=== PATIENT | female | born 2000 | race Caucasian/White ===

== ENCOUNTER 2024-11-16 08:41 | Emergency (ER) | payer OTHER, SELFPAY ==
[2024-11-16 08:47] VITALS: BP 102/80; PULSE 102; TEMP 37.1; O2SAT 97; BMI 20.4
--- NOTE | 2024-11-16 09:38 | ED_ITS ---
HPI HPI - General Adult General Chief complaint: Upper Respiratory Infection Stated complaint: FLU LIKE SYMPTOMS Time Seen by Provider: 11/16/24 08:55 Source: patient Mode of arrival: walk-in Limitations: no limitations History of Present Illness HPI narrative: Patient is a 23-year-old female who is presenting to the ER today with chief complaint of flulike symptoms since starting Friday. Patient has been having nausea, vomiting, intermittent diarrhea. Patient is currently on her menses. Patient states she is not . Patient is currently in voluntary rehabilitation at [facility]. Patient states that she recently had a in the family of her brother and dad that have both of opiates. 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 Patient has been coughing, has been sick, and patient continues to be forced to go to group therapy while she is having flulike symptoms. Patient has been asking for nausea medication and has not been given by the nurse practitioner Martinez for unknown reason. Patient is voluntary in rehab, she wants to be there, but she is having difficulty working with the nurse practitioner Martinez for the reason treating flulike symptoms and her activity in [facility]. Patient is here secondary to feeling dehydrated, nausea vomiting, flulike symptoms, and wanting treatment to help her symptoms. All systems are negative except as noted/marked. All systems reviewed and otherwise negative. Nurses note and vital signs reviewed and patient is not hypoxic. General: The patient appears well and in no apparent distress. Patient is resting comfortably on cart. Patient is not toxic, lethargic, or listless Skin: Warm, dry, no pallor noted. There is no rash noted. No petechiae, purpura. Multiple tattoos, no secondary signs of infection. Head: Normocephalic, atraumatic Eye: Normal conjunctiva, no drainage, EOMI. PERRL Ears, Nose, Mouth, and Throat: oral mucosa is moist Nares patent. Mouth without vesicles. Cardiovascular: Regular Rate and Rhythm, no murmur, gallop, rub Respiratory: Patient is in no distress, no accessory muscle use, lungs are cl ear to auscultation, no wheezing, rales or rhonchi Back: non-tender, no CVA tenderness bilaterally to percussion. No CT LS midline pain GI: Mild diffuse tenderness to palpation, no masses appreciated. No peritoneal signs, no flank pain bilateral. no rebound, guarding, or rigidity noted. No distention Musculoskeletal: Patient has full range of motion of all of the extremities, no motor, sensory, or focal neurological deficits Neurological: A&O x4, normal speech Psychiatric: Cooperative Related Data Home Medications ?Medication ?Instructions ?Recorded ?Confirmed buprenorphine 24 mg/0.48 mL 24 mg subcut QWEEK 11/16/24 11/16/24 solution,exten.rel.subcutaneous syringe (Brixadi Weekly) ibuprofen 800 mg tablet (IBU) 800 mg PO Q8H 11/16/24 11/16/24 Previous Rx's ?Medication ?Instructions ?Recorded ciprofloxacin HCl 500 mg tablet 500 mg PO BID 3 days #6 tabs 11/16/24 ciprofloxacin HCl 500 mg tablet 500 mg PO BID 3 days #6 tabs 11/16/24 ondansetron 4 mg disintegrating 4 mg PO Q4H PRN nausea and 11/16/24 tablet vomiting 3 days #6 tabs Allergies Allergy/AdvReac Type Severity Reaction Status Date / Time No Known Drug Allergies Allergy Verified 11/16/24 08:52 Opioid HPI Opioid Management Most Recent Opioid Data: No Data to Display PFSH PFSH Social History Little interest or pleasure in doing things: not at all Feeling down, depressed, or hopeless: not at all Exam Constitutional Vital Signs, click to edit/add: Last Vital Signs Temp 98.8 F 11/16/24 08:47 Pulse 102 H 11/16/24 08:47 Resp 18 11/16/24 08:47 BP 102/80 11/16/24 08:47 Pulse Ox 97 11/16/24 08:47 O2 Del Method Room Air 11/16/24 08:47 Course Vital Signs Vital signs: Vital Signs Temperature 98.8 F 11/16/24 08:47 Pulse Rate 102 H 11/16/24 08:47 Respiratory Rate 18 11/16/24 08:47 Blood Pressure 102/80 11/16/24 08:47 Pulse Oximetry 97 11/16/24 08:47 Oxygen Delivery Method Room Air 11/16/24 08:47 Temperature 98.8 F 11/16/24 08:47 Pulse Rate 102 H 11/16/24 08:47 Respiratory Rate 18 11/16/24 08:47 Blood Pressure 102/80 11/16/24 08:47 Pulse Oximetry 97 11/16/24 08:47 Oxygen Delivery Method Room Air 11/16/24 08:47 Medical Decision Making MDM Narrative Medical decision making narrative: Patient heart rate is elevated, patient is asking for IV fluids. Patient been having nausea vomiting for the past 3 to 4 days has not been able to keep much liquids in. Patient will receive 1 L of IV fluid, have basic lab work drawn as well including urine. Patient says that she is not . Patient will be given work restriction note as well. 1045 patient potassium was 3.2. Patient was given oral potassium to drink. Patient felt much better after IV fluids. Patient was given Zofran. Patient was given a prescription for Zofran. Patient was given a work restrictions/ recommendations to help treat flulike symptoms. Patient was thankful for help, patient will be picked up and taken back to [facility]. 1105 urine shows bacteria, white blood cells, is contaminated with blood but minimal epithelial cells. Patient will be placed on prophylactic antibiotic as well, urine culture is pending Lab Data Labs: Lab Results 11/16/24 11/16/24 Range/Units 09:28 10:20 Sodium 140 (136-145) mmol/L Potassium 3.2 L (3.5-5.1) mmol/L Chloride 105 (98-107) mmol/L Carbon Dioxide 26.3 (21.0-32.0) mmol/L Anion Gap 11.9 BUN 8.0 (7.0-18.0) mg/dL Creatinine 0.73 (0.55-1.02) mg/dL Est GFR ( Amer) >60 (>=60 mL/min/1.73m^2) Est GFR (Non-Af Amer) >60 (>=60 mL/min/1.73m^2) BUN/Creatinine Ratio 11.0 Glucose 108 H (74-106) mg/dL Calcium 8.8 (8.5-10.1) mg/dL Magnesium 2.1 (1.8-2.4) mg/dL Total Creatine Kinase 39 (26-192) U/L Urine Color Dk. yellow (YELLOW) Urine Clarity Sl cloudy (CLEAR) Urine pH 6.0 (5.0-9.0) Ur Specific [place] 1.025 (1.005-1.025) Urine Protein 100 A (NEG/TRACE) mg/dL Urine Glucose (UA) Negative (NEGATIVE) mg/dL Urine Ketones Negative (NEGATIVE) mg/dL Urine Occult Blood Large A (NEGATIVE) Urine Nitrite Negative (NEGATIVE) Urine Bilirubin Small A (NEGATIVE) Urine Urobilinogen 2.0 A (0.2-1.0) EU/dL Ur Leukocyte Esterase Negative (NEGATIVE) Urine RBC 5-10 A (0-2) #/HPF Urine WBC 0-2 A (NONE SEEN) #/HPF Ur Squamous Epith Cells Few A (NONE/RARE) #/LPF Urine Crystals None seen (None Seen) #/HPF Urine Bacteria Moderate A (NONE SEEN) #/HPF Urine Casts None seen (NONE SEEN) #/LPF Urine Mucus Moderate A (NONE SEEN) Ur Culture Indicated? Yes-[facility] [place] Discharge Plan Discharge Stand Alone Forms: Work/School Release Chief Complaint: Upper Respiratory Infection Clinical Impression: Flu-like symptoms, Nausea & vomiting, Mild dehydration, Hypokalemia, Urinary tract infection Patient Disposition: Home, Self-Care Time of Disposition Decision: 10:41 Condition: Fair Prescriptions / Home Meds: New ciprofloxacin HCl 500 mg tablet 500 mg PO BID 3 Days Qty: 6 0RF ondansetron 4 mg tablet,disintegrating 4 mg PO Q4H PRN (Reason: nausea and vomiting) 3 Days Qty: 6 0RF ciprofloxacin HCl 500 mg tablet 500 mg PO BID 3 Days Qty: 6 0RF No Action Brixadi 24 mg/0.48 mL solution, extended rel syringe 24 mg subcut QWEEK ibuprofen [IBU] 800 mg tablet 800 mg PO Q8H Print Language: Cymraes Instructions: Dehydration (ED), Urinary Tract Infection in Women (ED), Potassium Content of Foods List (ED), Hypokalemia (ED), Acute Nausea and Vomiting (ED), Acute Nausea and Vomiting (DC), Acute Abdominal Pain (ED) Additional Instructions: Use Zofran as needed to help with increasing fluids at home. Increase fluids at home, Gatorade, Powerade, or water. Alternate using DayQuil, NyQuil, and Flonase. Add Mucinex as well as needed. Alternate Tylenol and Motrin every 4 hours to help with fever control, body aches or joint pain. Use [id number] vitamin C, vitamin D3, and zinc to help fight infection and help with her immune system. Patient potassium was low at 3.2. Patient was given oral potassium in the ER, 50 mill equivalents. Increase Gatorade and Powerade to help with electrolytes and potassium replacement. You have evidence of urinary tract infection, antibiotics have been prescribed for 3 days. Urine culture is pending as well. Good luck to you in rehab in your recovery, very proud of you!!!!!!!!!! Referrals: Physician,Non-Staff, MD [Primary Care Provider] - 1 week
[2024-11-16] MEDS: ONDANSETRON PF 4 MG/2 ML VIAL IV (09:51)
[2024-11-16] MEDS: 0.9 % SODIUM CHLORIDE 1,000 ML 1000 ML IV (09:51)
[2024-11-16 09:54] LABS: Anion Gap 11.9; Calcium 8.8 mg/dL (8.5-10.1); Carbon Dioxide 26.3 mmol/L (21.0-32.0); Chloride 105 mmol/L (98-107); Estimated GFR (African America >60 (>=60 mL/min/1.73m^2); Estimated GFR (Non-African Ame >60 (>=60 mL/min/1.73m^2); Glucose 108 mg/dL (74-106); Potassium 3.2 mmol/L (3.5-5.1); Sodium 140 mmol/L (136-145)
[2024-11-16 10:00] LABS: Creatine Kinase 39 U/L (26-192); Magnesium 2.1 mg/dL (1.8-2.4)
[2024-11-16 10:39] LABS: Bilirubin Urine SMALL (NEGATIVE); Blood Urine LARGE (NEGATIVE); Clarity Urine SL CLOUDY (CLEAR); Color Urine DK. YELLOW (YELLOW); Glucose Urine UA NEGATIVE (NEGATIVE); Ketones Urine NEGATIVE (NEGATIVE); Leukocyte Esterase Urine NEGATIVE (NEGATIVE); Nitrite Urine NEGATIVE (NEGATIVE); Protein Urine 100 mg/dL (NEG/TRACE); Specific Gravity Urine 1.025 (1.005-1.025)
[2024-11-16 11:01] LABS: WBC Urine 0-2 #/HPF (NONE SEEN)
[2024-11-16 11:02] LABS: Bacteria Urine MODERATE #/HPF (NONE SEEN); Cast Seen? NONE SEEN #/LPF (NONE SEEN); Crystals Seen? None Seen #/HPF (None Seen); Mucus Urine MODERATE (NONE SEEN); Squamous Epithelial Cell Urine FEW #/LPF (NONE/RARE); Urine Culture Indicated YES-FRMC
[2024-11-16] MEDS: POTASSIUM BICARBONATE/CIT 25 MEQ TABLET EFF 50 MEQ PO (11:10)
== END 2024-11-16 11:20 | disposition home or self-care (01) ==
PROVIDERS: Emergency Provider Emergency Medicine
DX: E86.0 Dehydration (principal); N39.0 Urinary tract infection, site not specified; E87.6 Hypokalemia; R11.2 Nausea with vomiting, unspecified; Z63.4 Disappearance and death of family member
CPT/HCPCS: 36415; 80048; 81001; 82550; 83735; 87086; 96361; 96374; 99284; J2405

== ENCOUNTER 2024-12-08 17:19 | Emergency (ER) | payer OTHER, SELFPAY ==
[2024-12-08 17:22] VITALS: BP 128/74; PULSE 56; TEMP 36.6; O2SAT 95; BMI 19.5
--- OUTSIDE RECORDS SUMMARY | 2024-12-08 17:24 | XMS_ITS | CCD ---
Author Organization [facility] Care Team Providers Care Delivery Mgr Name Role Phone PCP, NO Primary Care Unavailable VINAY MABRY MD Attending Unavailable DAQUAN REINA Attending UnavailSHANNON Mohr Attending Unavailable KENYA ROJAS, SUSIE SKINNER Referring Unavai lable Problems Active Problems Problem Classification Problem Date Documented Da te Episodic/Chronic Unclassified (1 source) Other specified disorders of teeth and supporting structures Onset: 02-10-2024 Urinary tract infections (1 source) Urinary tract infection, site not specified; Translations: [Urinary tract infection, site not specified] Onset: 09-03-2024 Episodic Urinary tract infections (1 source) Urinary tract infections Onset: 09-03-2024 Past or Other Problems Problem Classification Problem Date Documented Da te Episodic/Chronic Disorders of teeth and jaw (5 sources) Toothache; Translations: [Dental caries, unspecified] Onset: 02-10-2024 Episodic Results Test Name Value Interpretation Reference Range Facility CULT URINEon 09-05-2024 CULT URINE SPECIMEN DESCRIPTION Urine, Clean Catch SPECIMEN TYPE Urine Tested at [facility] [address] [address] CULTURE RESULTS Positive Growth STAPHYLOCOCCUS EPIDERMIDIS (NOTE) 6,000 CFU/mL Staphylococcus epidermidis No further workup. REPORT STATUS 09/05/2024 FINAL REPORT Normal [facility] Comment on above: Performed By: #### U RNC ####Yi Bose ([id number])[facility] [address] [place] [address] BASIC METABOLIC PNLon 2023 Anion gap [Moles/Vol] 9 mmol/L Normal 4-16 [facility] Comment on above: Performed By: #### B AMP #### Yi Bose ([id number]) [facility] [address] [place] [address] Calcium [Mass/Vol] 9.6 mg/dL Normal 8.5-10.4 [facility] Comment on above: Performed By: #### B AMP #### Yi Bose ([id number]) [facility] [address] [place] [address] Chloride [Moles/Vol] 106 mmol/L Normal 98-111 [facility] Comment on above: Performed By: #### B AMP #### Yi Bose ([id number]) [facility] [address] [place] [address] CO2 [Moles/Vol] 23 mmol/L Normal 21-31 [facility] Comment on above: Performed By: #### B AMP #### Yi Bose ([id number]) [facility] [address] [place] [address] Creatinine [Mass/Vol] 0.76 mg/dL Normal 0.60-1.20 [facility] Comment on above: Performed By: #### B AMP #### Yi Bose ([id number]) [facility] [address] [place] [address] ESTIMATED GFR 111 mL/min/1.73 m2 Normal >59 [facility] Comment on above: Result Comment: Ivette mated GFR was calculated using the CKD-EPI cr (2020) equation refit without race. The equation is recommended by the National Kid[employer] - [place] Society of Nephrology Task Force. Tested at [facility] [address] [address] Performed By: #### B AMP #### Yi Bose ([id number]) [facility] [address] [place] [address] Glucose [Mass/Vol] 100 mg/dL High 70-99 [facility] Comment on above: Performed By: #### B AMP #### Yi Bose ([id number]) [facility] [address] [place] [address] Potassium [Moles/Vol] 3.9 mmol/L Normal 3.6-5.1 [facility] Comment on above: Performed By: #### B AMP #### Yi Bose ([id number]) [facility] [address] [place] [address] Sodium [Moles/Vol] 138 mmol/L Normal 135-145 [facility] Comment on above: Performed By: #### B AMP #### Yi Bose ([id number]) [facility] [address] [place] [address] Urea nitrogen [Mass/Vol] 11 mg/dL Normal 8-26 [facility] Comment on above: Performed By: #### B AMP #### Yi Bose ([id number]) [facility] [address] [place] [address] CBC W/ DIFFon 09-03-2024 ABS BASOS 0.00 THOU/mcL Normal 0.00-0.20 [facility] Comment on above: Performed By: #### C BCD #### Yi Bose ([id number]) [facility] [address] [place] [address] ABS EOS 0.00 THOU/mcL Low 0.03-0.45 [facility] Comment on above: Performed By: #### C BCD #### Yi Bose ([id number]) [facility] [address] [place] [address] ABS LYMPHS 1.50 THOU/mcL Normal 1.00-4.00 [facility] Comment on above: Performed By: #### C BCD #### Yi Bose ([id number]) [facility] [address] [place] [address] ABS MONOS 0.30 THOU/mcL Normal 0.20-0.90 [facility] Comment on above: Performed By: #### C BCD #### Yi Bose ([id number]) [facility] [address] [place] [address] ABS NEUTROPHIL 4.30 THOU/mcL Normal 1.80-7.70 [facility] Comment on above: Performed By: #### C BCD #### Yi Bose ([id number]) [facility] [address] [place] [address] Basophils/100 WBC (Bld) 1 % Normal [facility] Comment on above: Result Comment: Test ed at [facility] [address] [address] Performed By: #### C BCD #### Yi Bose ([id number]) [facility] [address] [place] [address] Eosinophils/100 WBC (Bld) 0 % Normal [facility] Comment on above: Performed By: #### C BCD #### Yi Bose ([id number]) [facility] [address] [place] [address] Erythrocyte distribution width (RBC) [Ratio] 13.9 % Normal 12.3-17.0 [facility] Comment on above: Performed By: #### C BCD #### Yi Bose ([id number]) [facility] [address] [place] [address] Hematocrit (Bld) [Volume fraction] 34.9 % Low 36-46 [facility] Comment on above: Performed By: #### C BCD #### Yi Bose ([id number]) [facility] [address] [place] [address] Hemoglobin (Bld) [Mass/Vol] 11.9 g/dL Low 12.0-15.2 [facility] Comment on above: Performed By: #### C BCD #### Yi Bose ([id number]) [facility] [address] [place] [address] Lymphocytes/100 WBC (Bld) 25 % Normal [facility] Comment on above: Performed By: #### C BCD #### Yi Bose ([id number]) [facility] [address] [place] [address] MCH (RBC) [Entitic mass] 27.8 pg Normal 27-33 [facility] Comment on above: Performed By: #### C BCD #### Yi Bose ([id number]) [facility] [address] [place] [address] MCHC (RBC) [Mass/Vol] 34.0 g/dL Normal 32-36 [facility] Comment on above: Performed By: #### C BCD #### Yi Bose ([id number]) [facility] [address] [place] [address] MCV (RBC) [Entitic vol] 81.7 fL Low 82-97 [facility] Comment on above: Performed By: #### C BCD #### Yi Bose ([id number]) [facility] [address] [place] [address] Monocytes/100 WBC (Bld) 5 % Normal [facility] Comment on above: Performed By: #### C BCD #### Yi Bose ([id number]) [facility] [address] [place] [address] PLATELET 187 THOU/mcL Normal 140-375 [place] Comment on above: Performed By: #### C BCD #### Yi Bose ([id number]) [facility] [address] [place] [address] Platelet mean volume (Bld) [Entitic vol] 9.5 fL Normal 7.4-11.5 [facility] Comment on above: Performed By: #### C BCD #### Yi Bose ([id number]) [facility] [address] [place] [address] RBC 4.26 MIL/mcL Normal 3.80-5.20 [facility] Comment on above: Performed By: #### C BCD #### Yi Bose ([id number]) [facility] [address] [place] [address] SEGS 69 % Normal [facility] Comment on above: Performed By: #### C BCD #### Yi Bose ([id number]) [facility] [address] [place] [address] WBC 6.1 THOU/mcL Normal 3.6-10.5 [place] Comment on above: Performed By: #### C RYLEE #### Yi Bose ([id number]) [facility] [address] [place] [address] CT ABDOMEN PELVIS WO CONTRAS Ton 09-03-2024 CT ABDOMEN PELVIS WO CONTRAST CT ABDOMEN PELVIS WO CONTRAST HISTORY: Flank pain, kidney stone suspected COMPARISON: 07/12/[address] TECHNIQUE: Noncontrast multiplanar CT images of the abdomen and pelvis NOTE: If there are questions about the content of this report, please contact [facility] radiology by calling [phone] FINDINGS: LOWER CHEST: Unremarkable. LIVER: Unremarkable. GALLBLADDER/BILE DUCTS: Gallbladder unremarkable. No calcified stones or evidence of cholecystitis. No biliary ductal dilatation. PANCREAS: Unremarkable. Main pancreatic duct normal caliber. SPLEEN: Unremarkable. ADRENALS: Unremarkable. KIDNEYS/URETERS: Unremarkable. No mass. No collecting system calculi or obstruction. GI TRACT: Appendix normal. No diverticulitis. Small and large bowel not dilated or thickened. No mesenteric edema. No free air or fluid. Stomach unremarkable. VESSELS: No AAA. LYMPH NODES: No intra-abdominal lymphadenopathy. PELVIS: Uterus and ovaries unremarkable. Bladder unremarkable. ABD WALL: Unremarkable. No mass or hernia. BONES: Unremarkable. OTHER: None. IMPRESSION: No acute abnormality. No collecting system calculi or obstruction. SIGNED BY: Christiano Lopez on 09/03/2024 10:40 PM 160 47.628 [facility] Imaging Report - Main Call Center - [facility] Call Center: Normal [facility] ED PROV NOTEon 09-03-2024 ED PROV NOTE Soft Work Wrapper Examiner Authentication Interface Message Text Attestation signed by Shannon Watkins MD at 09/04/241932 EMERGENCY DEPARTMENT - ATTENDING NOTE I have personally seen and examined this patient. I have fully participated in the care of this patient with the resident/LAKHWINDER. I have performed the substantive portion of the medical decision making. I have reviewed and agree with all pertinent clinical information including history, physical exam, labs, radiographic studies, and the plan. I approve the management plan and take responsibility for that plan and management. ED Course as of 09/04/241932Sep 03, [id number] I directly examined the patient. Patient endorses bilateral flank pain, with right pain worse than the left. Patient endorses dysuria, and reports she has frequent UTIs. Patient regularly takes cranberry pills, and reports ongoing mild symptoms over the past few weeks. Patient endorses nausea, chills, polyuria, and diaphoresis. I have personally seen and examined this patient. I have fully participated in the care of this patient with the LAKHWINDER/resident. I have performed the substantive portion of MDM and I have reviewed and agree with all pertinent clinical information including history, physical exam, labs, radiographic studies and the plan. I approve the management plan and take responsibility for that plan and management. PHYSICAL EXAM VITAL SIGNS: @VS@ Constitutional: Well developed, well nourished, no acute distress Eyes: Conjunctiva normal, EOMI HENT: Normal cephalic, atraumatic, external ears normal, nose normal, oropharynx moist. Neck - supple Respiratory: No respiratory distress, normal breath sounds Cardiovascular: Normal rate, normal rhythm, no murmurs GI: Soft, non-distended, non-tender Musculoskeletal: No edema, no tenderness, no deformities Integument: Well hydrated, no rashes Neurologic: Alert & oriented x 3, no focal deficits Psychiatric: Affect normal, Judgment normal, Mood normal EKG: EKG was interpreted by Shannon Watkins MD Electronically signed by: Shannon Watkins MD [facility] EMERGENCY DEPARTMENT ED Encounter Arrival Date: 09/03/242105 Forrest Barajas : 2000 [address] [facility] [address] [facility]: [id number] [facility]: [phone] Please note that some or all of this record was generated using voice recognition software. If there are any questions about the content of this document, please contact the author as some errors in milk powder grinder may have occurred. EMERGENCY DEPARTMENT - GENERAL NOTE CHIEF COMPLAINT Chief Complaint Patient presents with Dysuria States recently dx with UTI and started on ATBs but never finished d/t not having them. States for the past 2 weeks has had dysuria. States now having flank pain, nausea, and chills. HPI Forrest Barajas is a 23 year old female with a past medical history of polysubstance use disorder, bipolar 1 disorder, borderline personality disorder, and depression who presents to the emergency department for evaluation of dysuria for the past 2 weeks. Patient reports he is also developed bilateral flank pain more prominent on the right, nausea and chills. Patient denies abdominal pain and vomiting. Patient denies fever. Patient denies chest pain or shortness of breath. She reports she gets frequent UTIs and was recently treated for last week however did not finish the antibiotics due to her losing them. She is unsure of what antibiotic she was on and states that she was prescribed them by a nurse at a rehab facility she was at. She reports she rarely takes cranberry pills. REVIEW OF SYSTEMS A full 12 point review of systems was performed upon initial exam and is negative unless stated in the HPI. PAST MEDICAL HISTORY Past Medical History: Diagnosis Date Anemia Bipolar 1 disorder (HCC) Depression Endometritis Gallstones Pneumothorax on right summer spontaneous Research subject Please lm at [phone] or page after hours [phone] when pt presents for delivery SURGICAL HISTORY Past Surgical History: Procedure Laterality Date TONSILLECTOMY CURRENT MEDICATIONS Prior to Admission medications Medication Sig Start Date End Date Taking? Authorizing Provider ibuprofen (ADVIL,MOTRIN) 800 MG TABS Take 1 tablet by mouth 3 (three) times daily as needed for Mild Pain (1-3). 03/22/24 Daquan Reina MD naproxen (NAPROSYN) 500 MG TABS Take 1 tablet by mouth 2 (two) times daily with meals. 11/27/22 Mazin Saunders PA-C ondansetron (ZOFRAN) 4 mg tablet Take 1 tablet by mouth every 8 (eight) hours as needed. 07/20/22 Dread Couch MD ibuprofen (ADVIL,MOTRIN) 600 MG TABS Take 1 tablet by mouth 4 (four) times daily as needed for Mild Pain (more content not included)... Normal [facility] HCG,POC URINEon 09-03-2024 Beta HCG ( test) Ql (U) Negative Normal NEGATIVE [facility] Comment on above: Performed By: #### P HCG #### Yi Bose ([id number]) [facility] [address] [place], [place] [id number] UAS REFLEXon 09-03-2024 Appearance (U) TURBID Abnormal Clear [facility] Comment on above: Performed By: #### U ASR #### Yi Bose ([id number]) [place] [id number] BACTERIA SEE NOTES Normal NONE [facility] Comment on above: Result Comment: NONE Performed By: #### U ASR #### Yi Bose ([id number]) [place] [address] BILIRUBIN,URINE Negative Normal NEGATIVE [facility] Comment on above: Performed By: #### U ASR #### Yi Bose ([id number]) [facility] [address] [place] [address] BLOOD, URINE 2+ (0.2-0.5 mg/dL) Abnormal NEGATIVE [facility] Comment on above: Performed By: #### U ASR #### Yi Bose ([id number]) [place] [id number] Color (U) Yellow Normal Yellow [facility] Comment on above: Performed By: #### U ASR #### Yi Bose ([id number]) [facility] [address] [place] [address] Glucose Ql (U) Negative Normal NEGATIVE [facility] Comment on above: Performed By: #### U ASR #### Yi Bose ([id number]) [facility] [address] [place] [address] Ketones Ql (U) 2+ (40-60 mg/dL) Abnormal NEGATIVE [facility] Comment on above: Performed By: #### U ASR #### Yi Bose ([id number]) [facility] [address] [place] [address] Leukocyte esterase Test strip Ql (U) 4+ (500 Cari/uL) Abnormal NEGATIVE [facility] Comment on above: Performed By: #### U ASR #### Yi Bose ([id number]) [facility] [address] [place] [address] Mucus Ql (Urine sed) PRESENT Normal [facility] Comment on above: Result Comment: Test ed at [address] [address] Performed By: #### U ASR #### Yi Bose ([id number]) [facility] [address] [place] [address] Nitrite Ql (U) Negative Normal NEGATIVE [facility] Comment on above: Performed By: #### U ASR #### Yi Bose ([id number]) [facility] [address] [place] [address] pH (U) 6.0 [pH] Normal 5.0-8.0 [facility] Comment on above: Performed By: #### U ASR #### Yi Bose ([id number]) [facility] [address] [place] [address] PROTEIN URIN 1+ (30-70 mg/dL) Abnormal NEGATIVE [facility] Comment on above: Performed By: #### U ASR #### Yi Bose ([id number]) [facility] [address] [place] [address] RBC 11 to 20 Abnormal <6 [facility] Comment on above: Performed By: #### U ASR #### Yi Bose ([id number]) [facility] [address] [place] [address] SPEC.GRAVITY,URINE 1.035 High 1.005-1.029 [facility] Comment on above: Performed By: #### U ASR #### Yi Bose ([id number]) [facility] [address] [place] [address] SQUAMOUS EPI CELLS 11 to 20 Normal [facility] Comment on above: Performed By: #### U ASR #### Yi Bose ([id number]) [facility] [address] [place] [address] UROBILINOGEN 1+ (2-3 mg/dL) Abnormal NORMAL [facility] Comment on above: Performed By: #### U ASR #### Yi Bose ([id number]) [facility] [address] [place] [address] WBC (U) [#/Vol] /uL Abnormal <6 [facility] Comment on above: Performed By: #### U ASR #### Yi Bose ([id number]) [facility] [address] [place] [address] SPECIMEN SOURCE Urine, Clean Catch Normal [facility] Comment on above: Performed By: #### U ASR #### Yi Bose ([id number]) [facility] [address] [place] [address] URINE TYPE Urine Normal [facility] Comment on above: Performed By: #### U ASR #### Yi Bose ([id number]) [facility] [address] [place] [address] ED PROV NOTEon 03-22-2024 ED PROV NOTE Soft Work Wrapper Examiner Authentication Interface Message Text [facility] EMERGENCY DEPARTMENT ED Encounter Arrival Date: 03/22/24 1410 Forrest Barajas : 2000 [address] [facility] [address] [facility]: [id number] [facility]: [phone] CHIEF COMPLAINT Chief Complaint Patient presents with Dental Pain has had toothache for pain since October. is having a hard time getting into dentist. Had been on multiple rounds of ATB waiting to get into dentist. does not feel infected, just needs to come out HPI Forrest Barajas is a 23 year old female who presents complaining of dental pain for several months. She is having a hard time getting in with a dentist due to insurance. She has been on several rounds of antibiotics. No fevers. No trouble swallowing. SURGICAL HISTORY Past Surgical History: Procedure Laterality Date TONSILLECTOMY CURRENT MEDICATIONS Prior to Admission medications Medication Sig Start Date End Date Taking? Authorizing Provider ibuprofen (ADVIL,MOTRIN) 800 MG TABS Take 1 tablet by mouth 3 (three) times daily as needed for Mild Pain (1-3). 03/22/24 Yes Daquan Reina MD naproxen (NAPROSYN) 500 MG TABS Take 1 tablet by mouth 2 (two) times daily with meals. 08/11/22 Mazin Saunders PA-C ondansetron (ZOFRAN) 4 mg tablet Take 1 tablet by mouth every 8 (eight) hours as needed. 07/20/22 Dread Couch MD ibuprofen (ADVIL,MOTRIN) 600 MG TABS Take 1 tablet by mouth 4 (four) times daily as needed for Mild Pain (1-3). 07/20/22 Dread Couch MD phenazopyridine (PYRIDIUM) 200 MG TABS Take 1 tablet by mouth 3 (three) times daily. 02/28/22 Angelica Freed PA-C loperamide (IMODIUM) 2 MG TABS Take 1 tablet by mouth as needed. 11/30/21 Lester Mahoney MD ondansetron (ZOFRAN-ODT) 4 MG TBDP Take 1 tablet by mouth every 8 (eight) hours as needed. 11/30/21 Lester Mahoney MD ALLERGIES No Known Allergies FAMILY HISTORY Family History Problem Relation Age of Onset Alcohol abuse Father SOCIAL HISTORY Social History Socioeconomic History Marital status: Tobacco Use Smoking status: Former Smokeless tobacco: Never Vaping Use Vaping status: Every Day Substance and Sexual Activity Alcohol use: No Drug use: Yes Types: Marijuana, Fentanyl Comment: last used marijuana yesterday, last used Fentanyl 4-5 hours [employer] Sexual activity: Yes Partners: Male control/protection: None Other Topics Concern Weight Concern No Special Diet No Exercise No Seat Belt Yes Self-Exams No Social Determinants of Health Food Insecurities Transportation Interpersonal Safety Housing/Utilities Medical Decision Making: Patient medications reviewed on today's visit. Physical Exam: Vitals: 03/22/24 1425 BP: 103/67 Pulse: 71 Resp: 16 Temp: 98.4 F (36.9 C) TempSrc: Oral SpO2: 100% Constitutional: Well appearing, no distress HENT: Normocephalic, Atraumatic, external ears normal, nose normal, oropharynx moist. Pharynx clear. No dental swelling or erythema. Neck: Supple Cardiovascular: Regular rate and rhythm Pulmonary: non-labored Social determinants of health affecting treatment: Patient has a psychiatric diagnoses which may adversely affect compliance and treatment and Patient has limited financial resources and may not be able to afford prescribed medication Independent Historians: None PAST MEDICAL HISTORY Past Medical History: Diagnosis Date Anemia Bipolar 1 disorder (HCC) Depression Endometritis Gallstones Pneumothorax on right summer spontaneous Research subject Please lm at [phone] or page after hours [phone] when pt presents for delivery Pertinent comorbidities that increase risk:none Number of problems addressed: 2 External Records and/or Notes Reviewed: Prescription drug monitoring program (PDMP) reviewed: 03/22/2024 3:11 PM Differential diagnosis (2:09 PM ):Dental pain. Dental infection Radiology Studies: I independently reviewed the images below and then reviewed the radiology report: No orders to display Medications given and patient response: Medication Administration from 03/22/2024 1410 to 03/22/2024 1600 Date/Time Order Dose Route Action Action by Comments 03/22/2024 1543 EDT ibuprofen (ADVIL,MOTRIN) tablet 800 mg 800 mg Oral Given Anderson Landon -- 03/22/2024 1543 EDT clove oil-viscous lidocaine-benzocaine (TOOTHACHE SALVE) topical solution -- Buccal Given Anderson Landon -- Patient response to medications: No Change in patient status with the above medications Medical Decision Making: Consultants with which management was discussed: none Prescription Drug Management: The Patient's current medications were reviewed on today's visit and the following changes were recommended: Percocet Patient's above results were ordered by myself or one of my physician partners. Results discussed below are my independent int (more content not included)... Normal [facility] ED PROV NOTEon 02-10-2024 ED PROV NOTE Soft Work Wrapper Examiner Authentication Interface Message Text Attestation signed by Vinay Mabry MD at 02/13/24 180 EMERGENCY DEPARTMENT - ATTENDING NOTE I have personally seen and examined this patient. I have fully participated in the care of this patient with the resident/LAKHWINDER. I have performed the substantive portion of the medical decision making. I have reviewed and agree with all pertinent clinical information including history, physical exam, labs, radiographic studies, and the plan. I approve the management plan and take responsibility for that plan and management. Very slight facial swelling noted, although no impingement on the airway and the floor of the mouth is soft. Airway widely patent. Electronically signed by: Vinay Mabry MD EMERGENCY DEPARTMENT - GENERAL NOTE CHIEF COMPLAINT Chief Complaint Patient presents with Dental Pain Started 2 months ago. Pt was on antibiotics but has continued to have issues and left the rehab program she was in because of this. HPI Forrest Barajas is a 23 year old female who presents to the emergency department complaint of dental pain. States that she is having dental pain in both the right maxillary region and left mandibular region. States that there are several teeth that are rotting/cavities. Patient states that she was previously in rehab and was unable to be treated. States that she was previously on penicillin which did not provide her relief. Patient has not she has called several providers unable to get into see a dentist. Not currently on any antibiotics. States that she has been taking ibuprofen Excedrin and Tylenol and rotating fashion to help with her pain. No associated throat swelling or difficulty swallowing. Symptoms ongoing for past 2 months. No associated fever or chills at this time. History was obtained from patient. REVIEW OF SYSTEMS In addition to that documented in the HPI above, the additional ROS was obtained: Constitutional: Denies fevers or chills Eyes: Denies vision changes HENT: See HPI CV: Denies chest pain Resp: Denies SOB GI: Denies vomiting or diarrhea : Denies painful urination MSK: Denies recent trauma Skin: Denies new rashes Neuro: Denies new numbness or tingling or weakness Endocrine: Denies unexpected weight loss Heme: Denies bleeding disorders PAST MEDICAL HISTORY Past Medical History: Diagnosis Date Anemia Bipolar 1 disorder (HCC) Depression Endometritis Gallstones Pneumothorax on right summer spontaneous Research subject Please lm at [phone] or page after hours [phone] when pt presents for delivery SURGICAL HISTORY Past Surgical History: Procedure Laterality Date TONSILLECTOMY CURRENT MEDICATIONS Prior to Admission medications Medication Sig Start Date End Date Taking? Authorizing Provider naproxen (NAPROSYN) 500 MG TABS Take 1 tablet by mouth 2 (two) times daily with meals. 08/11/22 Mazin Saunders PA-C ondansetron (ZOFRAN) 4 mg tablet Take 1 tablet by mouth every 8 (eight) hours as needed. 07/20/22 Dread Couch MD ibuprofen (ADVIL,MOTRIN) 600 MG TABS Take 1 tablet by mouth 4 (four) times daily as needed for Mild Pain (1-3). 07/20/22 Dread Couch MD phenazopyridine (PYRIDIUM) 200 MG TABS Take 1 tablet by mouth 3 (three) times daily. 02/28/22 Angelica Freed PA-C loperamide (IMODIUM) 2 MG TABS Take 1 tablet by mouth as needed. 11/30/21 Lester Mahoney MD ondansetron (ZOFRAN-ODT) 4 MG TBDP Take 1 tablet by mouth every 8 (eight) hours as needed. 11/30/21 Lester Mahoney MD ALLERGIES No Known Allergies FAMILY HISTORY Family History Problem Relation Age of Onset Alcohol abuse Father . SOCIAL HISTORY Social History Socioeconomic History Marital status: Spouse name: Not on file Number of children: Not on file Years of education: Not on file Highest education level: Not on file Occupational History Not on file Tobacco Use Smoking status: Former Smokeless tobacco: Never Vaping Use Vaping status: Every Day Substance and Sexual Activity Alcohol use: No Drug use: Yes Types: Marijuana, Fentanyl Comment: last used marijuana yesterday, last used Fentanyl 4-5 hours [employer] Sexual activity: Yes Partners: Male control/protection: None Other Topics Concern Weight Concern No Special Diet No Exercise No Seat Belt Yes Self-Exams No Social History Narrative Not on file Social Determinants of Health Financial Resource Strain: Not on file Food Insecurity: Unknown (10/04/2023) Food Insecurities Worried about running out of food: Not on file Food Bought: Not on file Transportation Needs: Unknown (10/04/2023) Transportation Worried about transportation: Not on file Physical Activity: Not on (more content not included)... [facility] [place] Normal Negative [facility] Comment on above: Performed By: #### L [id number], LAB17, LAB99 #### [facility] [address] Normal [facility] Comment on above: Result Comment: Qual itative CG cutoff value is 5 mIU/mL Release to patient->Immediate Performed By: #### L [id number], LAB17, LAB99 #### [facility] [address] [place] [address] [place] CBC W/DIFFon 03-14-2022 BASOPHILS ABS AUTO 0.0 K/uL [place] 0.0-0.1 [facility] Comment on above: Performed By: #### L [id number] #### [facility] [address] [place] [address] [place] Basophils/100 WBC (Bld) 0.5 % [facility] Comment on above: Performed By: #### L [id number] #### [facility] [address] CBC W/DIFF [facility] Comment on above: Result Comment: Rele ase to patient->Immediate Performed By: #### L [id number] #### [address] Eosinophils (Bld) [#/Vol] 0.2 10*3/uL Normal 0.0-0.4 [facility] Comment on above: Performed By: #### L [id number] #### [address] Eosinophils/100 WBC (Bld) 1.8 % Normal [facility] Comment on above: Performed By: #### L [id number] #### [address] Erythrocyte distribution width (RBC) [Ratio] 15.8 % Abnormal 11.7-15.2 [facility] Comment on above: Performed By: #### L [id number] #### [address] Hematocrit (Bld) [Volume fraction] 36.4 % Normal 35.8-46.5 [facility] Comment on above: Performed By: #### L [id number] #### [address] Hemoglobin (Bld) [Mass/Vol] 12.5 g/dL Normal 12.1-15.8 [facility] Comment on above: Performed By: #### L [id number] #### [address] Lymphocytes (Bld) [#/Vol] 2.8 10*3/uL Normal 0.8-3.6 [facility] Comment on above: Performed By: #### L [id number] #### [address] Lymphocytes/100 WBC (Bld) 33.1 % Normal [facility] Comment on above: Performed By: #### L [id number] #### [address] MCH (RBC) [Entitic mass] 26.9 pg Abnormal 28.4-33.4 [facility] Comment on above: Performed By: #### L [id number] #### [address] MCHC (RBC) [Mass/Vol] 34.3 g/dL Normal 31.1-37.0 [facility] Comment on above: Performed By: #### L [id number] #### [address] MCV (RBC) [Entitic vol] 78.7 fL Abnormal 85.0-99.0 [facility] Comment on above: Performed By: #### L [id number] #### [address] Monocytes (Bld) [#/Vol] 0.6 10*3/uL Normal 0.3-0.9 [facility] Comment on above: Performed By: #### L [id number] #### [address] Monocytes/100 WBC (Bld) 7.2 % Normal [facility] Comment on above: Performed By: #### L [id number] #### [address] NEUTROPHIL ABS AUTO 4.9 K/uL Normal 2.0-7.3 [facility] Comment on above: Performed By: #### L [id number] #### [address] Neutrophils/100 WBC (Bld) 57.4 % Normal [facility] Comment on above: Performed By: #### L [id number] #### [address] Platelets (Bld) [#/Vol] 235 10*3/uL Normal 154-393 [facility] Comment on above: Performed By: #### L [id number] #### [address] RBC (Bld) [#/Vol] 4.63 10*6/uL Normal 3.86-5.17 [facility] Comment on above: Performed By: #### L [id number] #### [address] WBC (Bld) [#/Vol] 8.5 10*3/uL Normal 4.0-10.5 [facility] Comment on above: Performed By: #### L [id number] #### [address] [place] [address] [place] COMPREHENSIVE METABOLIC PANE Naveed 03-14-2022 Albumin [Mass/Vol] 4.3 g/dL Normal 3.5-5.7 [facility] Comment on above: Performed By: #### L [id number], LAB17, LAB99 #### [facility] [address] [place] [address] Albumin/Globulin [Mass ratio] 1.7 {ratio} Normal 1.0-2.0 [facility] Comment on above: Performed By: #### L [id number], LAB17, LAB99 #### [facility] [address] [place] [address] ALP [Catalytic activity/Vol] 84 U/L Normal 34-104 [facility] Comment on above: Result Comment: Raheem alicia note the new reference range for this test. Performed By: #### L [id number], LAB17, LAB99 #### [facility] [address] [place] [address] ALT [Catalytic activity/Vol] 6 U/L Abnormal 7-52 [facility] Comment on above: Result Comment: Due to new chemistry methodology at some [facility] labs, please re-baseline this test for any patients being transferred from a different location. Performed By: #### L [id number], LAB17, LAB99 #### [facility] [address] [place] [address] Anion gap [Moles/Vol] 5 mmol/L Abnormal 7-16 [facility] Comment on above: Performed By: #### L [id number], LAB17, LAB99 #### [facility] [address] [place] [address] AST [Catalytic activity/Vol] 11 U/L Abnormal 13-39 [facility] Comment on above: Performed By: #### L [id number], LAB17, LAB99 #### [facility] [address] [place] [address] Bilirubin [Mass/Vol] 0.7 mg/dL Normal 0.3-1.0 [facility] Comment on above: Performed By: #### L [id number], LAB17, LAB99 #### [facility] [address] [place] [address] Calcium [Mass/Vol] 9.0 mg/dL Normal 8.6-10.2 [facility] Comment on above: Performed By: #### L [id number], LAB17, LAB99 #### [facility] [address] Chloride [Moles/Vol] 105 mmol/L Normal 98-107 [facility] Comment on above: Performed By: #### L [id number], LAB17, LAB99 #### [facility] [address] CO2 [Moles/Vol] 24 mmol/L Normal 21-31 [facility] Comment on above: Performed By: #### L AB144, LAB17, LAB99 #### [facility] [address] COMPREHENSIVE METABOLIC PANEL Normal [facility] Comment on above: Result Comment: Rele ase to patient->Immediate Performed By: #### L [id number], LAB17, LAB99 #### [facility] [address] [place] [address] Creatinine [Mass/Vol] 0.6 mg/dL Normal 0.6-1.2 [facility] Comment on above: Performed By: #### L AB144, LAB17, LAB99 #### [facility] [address] [place] [address] GFR MDRD NON AF AMER >60 Normal >60 [facility] Comment on above: Result Comment: GFR is estimated using creatinine, age, gender, and race. Patient's values should be interpreted as a trend. For additional information: [email or web address] Performed By: #### L AB144, LAB17, LAB99 #### [facility] [address] [place] [address] GFR/1.73 sq M.predicted among blacks MDRD (S/P/Bld) [Vol rate/Area] mL/min/{1.73_m2} Normal >60 [facility] Comment on above: Result Comment: GFR is estimated using creatinine, age, gender, and race. Patient's values should be interpreted as a trend. For additional information: [email or web address] Performed By: #### L AB144, LAB17, LAB99 #### [facility] [address] [place] [address] Globulin (S) [Mass/Vol] 2.6 g/dL Normal 2.6-4.2 [facility] Comment on above: Performed By: #### L AB144, LAB17, LAB99 #### [facility] [address] Glucose [Mass/Vol] 99 mg/dL Normal 74-109 [facility] Comment on above: Performed By: #### L AB144, LAB17, LAB99 #### [facility] [address] Potassium [Moles/Vol] 3.9 mmol/L Normal 3.5-5.3 [facility] Comment on above: Performed By: #### L AB144, LAB17, LAB99 #### [facility] [address] Protein [Mass/Vol] 6.9 g/dL Normal 6.0-8.3 [facility] Comment on above: Performed By: #### L AB144, LAB17, LAB99 #### [facility] [address] [place] [address] Sodium [Moles/Vol] 134 mmol/L Abnormal 136-145 [facility] Comment on above: Performed By: #### L AB144, LAB17, LAB99 #### [facility] [address] Urea nitrogen [Mass/Vol] 20 mg/dL Normal 7-25 [facility] Comment on above: Performed By: #### L AB144, LAB17, LAB99 #### [facility] [address]-ABD/PELVIS NO CONTRASTon 03-14-2022 CT-ABD/PELVIS NO CONTRAST EXAM: CT ABDOMEN AND PELVIS WITHOUT CONTRAST ON 03/14/2022 INDICATION: Left upper quadrant pain COMPARISON: None. TECHNIQUE: Multiplanar reformatted images of the abdomen and pelvis are provided for review. Dose modulation, iterative reconstruction and/or weight based adjustments to the mA/kV were utilized to reduce radiation dose to as low as reasonably achievable. IV Contrast: None. Oral Contrast: No. LIMITATIONS: Evaluation of solid intra and retroperitoneal organs is limited without the use of intravenous contrast. FINDINGS: BACK FEEDER PLYWOOD LAYUP LINE: No additional abnormality LUNG BASES: The lung bases are clear. LIVER: No focal abnormality is seen in the liver. SPLEEN: The spleen is normal in size and attenuation. GALLBLADDER AND BILIARY TREE: No calcified stones are seen. There is no ductal dilatation. PANCREAS: There is no pancreatic enlargement or inflammation. ADRENAL GLANDS: Normal. KIDNEYS: The kidneys are normal in size, shape and position. There is no hydronephrosis or nephrolithiasis. BOWEL: No oral contrast was given limiting evaluation of the bowel. There is no evidence of small bowel obstruction. The colon is filled with stool. No wall thickening or inflammatory change can be identified. The appendix appears to be normal. PERITONEUM/RETROPERI TONEUM: No ascites or free air is seen. VESSELS: The aorta appears normal in caliber. Other vasculature requires contrast enhancement for evaluation. LYMPH NODES: No adenopathy is visualized. REPRODUCTIVE ORGANS: The uterus is normal in appearance. The ovaries are unremarkable. URINARY BLADDER: Normal. ABDOMINAL WALL: Normal. BONES: No significant abnormality. OTHER FINDINGS: None. IMPRESSION: IMPRESSION: No acute intra-abdominal or pelvic pathology identified Increased stool noted Electronically Signed by: Kathie Starr MD, 03/14/2022 10:06 PM 5 - Marginal Invalid Interpretation Code [facility] ED Provider Noteson 03-14-20 ED Provider Notes Encounter Department: [facility] ED Provider Notes by Shade Segal MD at 03/14/2022 7:29 PM Author: DEBI Brownervice: Emergency MedicineAuthor Type: ED Physician Filed: 03/14/2022 10:27 PMDate of Service: 03/14/2022 7:29 PMStatus: Signed Seed Laboratory Assistant: Shade Segal MD (ED Physician) CHIEF COMPLAINT Chief Complaint Patient presents with -Rib Pain HPI History obtained from patient Forrest Barajas is a 21 y.o. female who presents to the emergency department with complaints of left-sided rib discomfort. Patient denies any trauma to this area. She denies fever or chills. She endorses a history of 2 pneumothoraces in the past which did not require chest tube. She states that she is a smoker. She denies any history of IV drug use but states that she is in rehab secondary to drug use in general. She denies nausea or vomiting, she points to her left lower rib/upper abdomen when describing her pain. She states that it seems more painful when she takes a deep breath or when she bends or twist. She denies any dysuria. She has no other complaints or concerns at this time. REVIEW OF SYSTEMS Review of Systems Constitutional: Negative for chills and fever. HENT: Negative for congestion and sore throat. Eyes: Negative for blurred vision. Respiratory: Positive for shortness of breath. Cardiovascular: Negative for chest pain. Gastrointestinal: Negative for abdominal pain, nausea and vomiting. Genitourinary: Negative for dysuria. Musculoskeletal: Negative for falls and joint pain. Patient complains of left rib pain. Skin: Negative for rash. Neurological: Negative for headaches. Endo/Heme/Allergies: Does not bruise/bleed easily. I have reviewed the nurse's notes, nurse's vital signs, and the nursing review of systems. All systems are negative except as noted: PAST MEDICAL HISTORY Past Medical History: DiagnosisDate -Lung collapse FAMILY HISTORY No family history on file. SOCIAL HISTORY Social History Socioeconomic History -Marital status: Tobacco Use -Smoking status:Current Every Day Smoker Packs/day:0.50 Types:Cigarettes -Smokeless tobacco:Never Used Vaping Use -Vaping Use:Former Substance and Sexual Activity -Alcohol use:Not Currently -Drug use:Yes Frequency:7.0 times per week Comment: smoke fentanyl everyday -Sexual activity:Not Currently SURGICAL HISTORY History reviewed. No pertinent surgical history. CURRENT MEDICATIONS No current facility-administere d medications for this encounter. Current Outpatient Medications MedicationSigDispens eRefill -acetaminophen (TYLENOL EXTRA STRENGTH) 500 mg tabletTake 2 tablets (1,000 mg total) by mouth every 6 hours as needed.60 tablet0 -buprenorphine HCL (SUBUTEX) 8 mg SublPlace 16 mg under the tongue daily. -[START ON 03/15/2022] ibuprofen (MOTRIN) 800 mg tabletTake 1 tablet (800 mg total) by mouth every 8 hours as needed for up to 5 days.15 tablet0 -lidocaine (LIDOCAINE) 5% (700 mg/patch) transdermal patchApply 1 patch onto the skin every 24 hours as needed for up to 10 days.10 patch0 ALLERGIES No Known Allergies PHYSICAL EXAM VITAL SIGNS: BP 106/71 Pulse 60 Temp 98 ?F (36.7 ?C) Resp 10 Ht 5' 3 (1.6 m) Wt 102 lb (46.3 kg) LMP (LMP Unknown) SpO2 99% BMI 18.07 kg/m? CDC criteria BMI < 18.5 = underweight ; 18.5 to <25 = normal, 25.0 to <30= overweight range. 30 - 39 = obese . 40 or greater = severe obesity Constitutional: Well developed, Well nourished, sitting upright on stretcher in no acute distress HEENT: Normocephalic, Atraumatic, Bilateral external ears normal, Oropharynx moist, nose normal. Eyes: PERRLA, EOMI, Conjunctiva normal, No discharge. No scleral icterus. Neck: Normal range of motion. Cardiovascular: Normal heart rate, Normal rhythm, No audible murmurs, gallops or rubs. Thorax AND Lungs: Normal breath sounds, No respiratory distress, No wheezing, no use of accessory muscles respiration; tenderness to the left lower rib/left upper abdomen region without obvious step-off, crepitus or deformity, no evidence of obvious flail chest Abdomen: Soft, No tenderness diffusely without guarding, rigidity or peritoneal signs, No masses, No pulsatile masses, not distended, bowel sounds normal Skin: Warm, Dry, No erythema, No obvious rashes noted. Extremities: No edema, No tenderness, No cyanosis, No clubbing. Musculoskeletal: Good range of motion in all major joints. No tenderness to palpation or major deformities noted. Neurologic: GCS 15, no meningeal signs, alert AND oriented x 3, Normal motor function, Normal sensory function, No focal deficits noted. Psychiatric: Affect normal, Judgment normal, Mood normal, no evidence of obvious psychomotor agitation. RADIOLOGY/PROCEDURES CT-ABD/PELVIS NO CONTRAST Final Result No acute intra-abdominal or pelvic pathology identified Increased stool noted Electronically Signed by: (more content not included)... Normal [facility] LIPASEon 03-14-2022 LIPASE Normal [facility] Comment on above: Result Comment: Rele ase to patient->Immediate Performed By: #### L [id number], LAB17, LAB99 #### [facility] [address] Lipase [Catalytic activity/Vol] 57 U/L Normal [facility] Comment on above: Performed By: #### L AB144, LAB17, LAB99 #### [facility] [address] XR-CHEST PORTABLE Vasiliy XR-CHEST PORTABLE STAT EXAM: PORTABLE CHEST ON 03/14/2022 AT 1928 hours INDICATION: Left rib pain COMPARISON: None FINDINGS: LIMITATIONS: Portable exam LINES AND TUBES: None HEART AND MEDIASTINUM: Right size is normal. Trachea is midline. PLEURAL SPACES: The costophrenic angles are clear. There is no pneumothorax. LUNGS: There is no acute consolidation. BONES AND SOFT TISSUES: No significant abnormality. OTHER: None. IMPRESSION: IMPRESSION: No acute pulmonary pathology Electronically Signed by: Kathie Starr MD, 03/14/2022 7:35 PM Normal [facility] ED Provider Noteson 03-07-20 ED Provider Notes Encounter Department: [facility] EM[facility] ED Provider Notes by Shannon Reynoso PA-C at 03/07/2022 4:29 PM Author: Maria T Kuhnrvice: -Author Type: Physician Apple Picking Supervisor Filed: 03/07/2022 4:33 PMDate of Service: 03/07/2022 4:29 PMStatus: Signed [facility] Laboratory Assistant: Shannon Reynoso PA-C (Physician Apple Picking Supervisor) CHIEF COMPLAINT Chief Complaint Patient presents with -Leg Pain HPI Forrest Barajas is a 21 y.o. female who presents complaint of left knee pain. Apparently the patient has been homeless and using a lot of street drugs and cannot remember if she has any injury to it or not. There is no direct impact injury or twisting injury that she can remember. Patient states that the rehab facility that she is entering wanted her to have it checked out. She states that they also want her assessed for pneumothorax because when she was a child she had a pneumothorax. She has no chest pain she has no shortness of breath her oxygen saturation is 100% and she is breathing 18 times a minute. She is not tachycardic. REVIEW OF SYSTEMS A complete review of systems was performed and All systems negative except as marked above Review of Systems Constitutional: Negative. HENT: Negative. Eyes: Negative. Respiratory: Negative. Cardiovascular: Negative. Gastrointestinal: Negative. Genitourinary: Negative. Musculoskeletal: Positive for joint pain. Skin: Negative. Electronic medical records reviewed and showed as above PAST MEDICAL HISTORY Past Medical History: DiagnosisDate -Lung collapse FAMILY HISTORY No family history on file. SOCIAL HISTORY Social History Socioeconomic History -Marital status: Tobacco Use -Smoking status:Never Smoker -Smokeless tobacco:Never Used Vaping Use -Vaping Use:Every day Substance and Sexual Activity -Alcohol use:Not Currently -Drug use:Yes Frequency:7.0 times per week Comment: smoke fentanyl everyday -Sexual activity:Not Currently SURGICAL HISTORY History reviewed. No pertinent surgical history. CURRENT MEDICATIONS No outpatient medications have been marked as taking for the 03/07/22 encounter (Hospital Encounter). ALLERGIES No Known Allergies PHYSICAL EXAM VITAL SIGNS: BP 132/74 Pulse 64 Temp 97.7 ?F (36.5 ?C) Resp 18 Ht 5' 3 (1.6 m) Wt 100 lb 4.8 oz (45.5 kg) SpO2 100% BMI 17.77 kg/m? , Constitutional: alert and not in acute distress, CDC criteria for BMI < 18.5 = underweight ; 18.5 to <25 = normal, 25.0 to <30= overweight range. 30 - 39 = obese . 40 or greater = severe obesity HENT: Normocephalic, Atraumatic, Bilateral external ears normal, Oropharynx moist, No oral exudates, Nose normal. TM's normal Eyes: PERRLA, EOMI, Conjunctiva normal, No discharge. Neck: Normal range of motion, No tenderness, Supple, No stridor. Lymphatic: No lymphadenopathy noted. Cardiovascular: Normal heart rate, Normal rhythm, No murmurs, No rubs, No gallops. Thorax AND Lungs: Normal breath sounds, No respiratory distress, No wheezing, No chest tenderness. Abdomen: Soft, No tenderness, No masses, No pulsatile masses. Skin: Warm, Dry, No erythema, No rash. Back: No tenderness, No CVA tenderness. Genitalia: defer exam Rectal: deferred, negative, stool guaiac negative Extremities: Intact distal pulses, No edema, minimal pain to palpation along the lateral aspect of the left knee joint. No erythema edema or ecchymosis no palpable effusion musculoskeletal: Good range of motion in all major joints. No tenderness to palpation or major deformities noted. Neurologic: Alert AND oriented x 3, Normal motor function, Normal sensory function, No focal deficits noted. Psychiatric: Affect normal, Judgment normal, Mood normal. EKG Not done RADIOLOGY/PROCEDURES XR-KNEE LEFT 1-2 VIEWS Final Result No acute osseous abnormality of the left knee. Small left suprapatellar effusion. Electronically Signed by: JOLIE LAND, 03/07/2022 4:15 PM No data to display Nursing Notes were reviewed COURSE AND MEDICAL DECISION MAKING Pertinent Labs AND Imaging studies reviewed. (See chart for details) At this time the patient's physical exam does not indicate any signs or symptoms of pneumothorax. X-ray of the knee shows no acute fracture or subluxation. I do believe she has some minor joint sprain causing her pain. I will send her home on Naprosyn and a neoprene wrap and have her follow-up as needed Patient was given precautions and reasons to return to the ED FINAL IMPRESSION Left knee sprain Electronically signed by: Shannon Reynoso PA-C, 03/07/2022 4:29 PM Shannon Reynoso PA-C 03/07/22 1633 [facility] XR-KNEE LEFT 1-2 VIEWSon XR-KNEE LEFT 1-2 VIEWS XR-KNEE LEFT 1-2 VIEWS Indication: Lower leg trauma, no prior imaging left knee pain Findings: Small suprapatellar effusion. No acute fracture or bony malalignment. IMPRESSION: IMPRESSION: No acute osseous abnormality of the left knee. Small left suprapatellar effusion. Electronically Signed by: JOLIE LAND, 03/07/2022 4:15 PM [facility] Encounters Encounter Date Encounter Type Care Provider Facility Start: 09-03-2024 ambulatory SUSIE MANN PA-C [facility] Start: 09-03-2024 End: 09-03-2024 Emergency department patient visit SHANNON WATKINS [facility] Start: 03-22-2024 End: 03-22-2024 Emergency department patient visit DAQUAN REINA [facility] Start: 03-22-2024 End: 03-22-2024 Emergency department patient visit NO PCP [facility] Start: 02-10-2024 End: 02-10-2024 Emergency department patient visit VINAY MABRY MD [facility] Payers Date Payer Category Payer Medicaid [id number] 2019 Medicaid [id number] 2015 Unknown [id number] 1998 Unknown [id number] 1998 Unknown [id number] 1998 Unknown [id number] 2.16. [id number] 1998 Unknown [id number] 2.16.8 [id number] 1998 Unknown [id number] 2.16.8 [id number] Progress note 09-03-2024 Note Date & Type Note Facility 09-03-2024 Note Soft Work Wrapper Examiner Authen tication Interface Message Text CURRENT STATUS IS EMERGENCY . : Any questions regarding PATIENT CLASS/STATUS should be directed to the Care Management Departments: [place] [id number] or [place] [id number] or [place] [phone]. [facility] Progress note 02-10-2024 Note Date & Type Note Facility 02-10-2024 Note Soft Work Wrapper Examiner Authen tication Interface Message Text CURRENT STATUS IS EMERGENCY . : Any questions regarding PATIENT CLASS/STATUS should be directed to the Care Management Departments: [place] [id number] or [place] [id number] or [place] [phone]. [facility] Summary Purpose Family History No Family History Records FoundNo Family History Records FoundNo Family History Records Found Advance Directives No Advanced Directives Records FoundNo Advanced Directives Records FoundNo Advanced Directives Records Found Additional Source Comments INFORMATION SOURCE (unrecogn ized section and content) DATE CREATED AUTHOR 03/20/2022 [facility] DATE CREATED AUTHOR AUTHOR'S ORGANIZ ATION 03/29/2024 [facility] DATE CREATED AUTHOR AUTHOR'S ORGANIZ ATION 09/10/2024 [facility] [employer] FOR RECORDS PERTAINING TO PATIENTS WHO ARE OR HAVE BEEN ENROLLED IN A CHEMICAL DEPENDENCY/SUBSTANCEABUSE PROGRAM, SOME INFORMATION MAY BE OMITTED. This clinical summary was aggregated from multiple sources. Caution should be exercised in using it in the provision of clinical care. This summary normalizes information from multiple sources, and as a consequence, information in this document may materially change the coding, format and clinical context of patient data. In addition, data may be omitted in some cases. CLINICAL DECISIONS SHOULD BE BASED ON THE PRIMARY CLINICAL RECORDS. [facility] [employer] [facility]. provides no warranty or guarantee of the accuracy or completeness of information in this document.
--- NOTE | 2024-12-08 17:34 | ED.GENADUL1 ---
HPI HPI - General Adult General Chief complaint: Skin/Abscess/Foreign Body Stated complaint: LUMP Time Seen by Provider: 12/08/24 17:19 Source: patient Mode of arrival: walk-in Limitations: no limitations History of Present Illness HPI narrative: Patient is a pleasant 23-year-old female who presents to the emergency department for redness and swelling to the back of her left arm. She states she has had a cyst like area for the last 2 years to the back of her arm. She states that recently has grown in size and the area has become red. There have been no open wounds or drainage. No fevers or vomiting. No concern for . She has been on Bactrim for the last 4 days but does not feel the area has improved. Related Data Home Medications ?Medication ?Instructions ?Recorded ?Confirmed buprenorphine 24 mg/0.48 mL 24 mg subcut QWEEK 11/16/24 11/16/24 solution,exten.rel.subcutaneous syringe (Brixadi Weekly) ibuprofen 800 mg tablet (IBU) 800 mg PO Q8H 11/16/24 11/16/24 Previous Rx's ?Medication ?Instructions ?Recorded ciprofloxacin HCl 500 mg tablet 500 mg PO BID 3 days #6 tabs 11/16/24 ciprofloxacin HCl 500 mg tablet 500 mg PO BID 3 days #6 tabs 11/16/24 ondansetron 4 mg disintegrating 4 mg PO Q4H PRN nausea and 11/16/24 tablet vomiting 3 days #6 tabs cephalexin 500 mg capsule 500 mg PO Q8H 10 days #30 caps 12/08/24 ketorolac 10 mg tablet 10 mg PO TID PRN pain #10 tabs 12/08/24 Allergies Allergy/AdvReac Type Severity Reaction Status Date / Time No Known Drug Allergies Allergy Verified 12/08/24 17:22 Opioid HPI Opioid Management Most Recent Opioid Data: No Data to Display Review of Systems ROS Constitutional Denies: fever or chills Ears, nose, mouth, and throat Denies: throat pain or nasal congestion Cardiovascular Denies: chest pain Respiratory Denies: shortness of breath Gastrointestinal Denies: nausea or vomiting Integumentary/Breast Denies: rash Hematologic/Lymphatic Denies: easy bruising or easy bleeding PFSH PFSH Social History Little interest or pleasure in doing things: not at all Feeling down, depressed, or hopeless: not at all Exam Narrative Exam Narrative: Gen.: Awake, alert, in no distress Head: Normocephalic, atraumatic ENT: Moist mucous membranes Respiratory: No respiratory distress Extremities: Moves extremities equally Psych: Normal mood and affect Neuro: No focal neuro deficit Skin: Warm, dry, intact; 3 cm cystlike area to the left posterior arm. The skin overlying the cyst is mildly erythematous and tender. Area is firm, mild fluctuance noted Constitutional Vital Signs, click to edit/add: Last Vital Signs Temp 97.9 F 12/08/24 17:22 Pulse 56 L 12/08/24 17:22 Resp 16 12/08/24 17:22 BP 128/74 12/08/24 17:22 Pulse Ox 95 12/08/24 17:22 O2 Del Method Room Air 12/08/24 17:22 Course Vital Signs Vital signs: Vital Signs Temperature 97.9 F 12/08/24 17:22 Pulse Rate 56 L 12/08/24 17:22 Respiratory Rate 16 12/08/24 17:22 Blood Pressure 128/74 12/08/24 17:22 Pulse Oximetry 95 12/08/24 17:22 Oxygen Delivery Method Room Air 12/08/24 17:22 Temperature 97.9 F 12/08/24 17:22 Pulse Rate 56 L 12/08/24 17:22 Respiratory Rate 16 12/08/24 17:22 Blood Pressure 128/74 12/08/24 17:22 Pulse Oximetry 95 12/08/24 17:22 Oxygen Delivery Method Room Air 12/08/24 17:22 Medical Decision Making [facility] Narrative Medical decision making narrative: Patient treated for infection with Keflex, she was encouraged to finish the Bactrim for better antibiotic coverage of secondarily infected skin cyst. She was encouraged to finish the antibiotics to calm the infection and follow-up with dermatology for cyst removal. No red streaking or circumferential erythema on exam today. Hemodynamically stable. Toradol given for discomfort. Patient encouraged to apply warm compresses. SUPERVISED APC VISIT, PHYSICIAN ATTESTATION: Based on the medical record the care appears appropriate. ? Medical Records Medical records reviewed: Yes I reviewed the patient's medical records Discharge Plan Discharge Chief Complaint: Skin/Abscess/Foreign Body Clinical Impression: Infected cyst of skin Patient Disposition: Home, Self-Care Time of Disposition Decision: 17:31 Condition: Good Prescriptions / Home Meds: New ketorolac 10 mg tablet 10 mg PO TID PRN (Reason: pain) Qty: 10 0RF cephalexin 500 mg capsule 500 mg PO Q8H 10 Days Qty: 30 0RF No Action Brixadi 24 mg/0.48 mL solution, extended rel syringe 24 mg subcut QWEEK ibuprofen [IBU] 800 mg tablet 800 mg PO Q8H ciprofloxacin HCl 500 mg tablet 500 mg PO BID 3 Days Qty: 6 0RF ondansetron 4 mg tablet,disintegrating 4 mg PO Q4H PRN (Reason: nausea and vomiting) 3 Days Qty: 6 0RF ciprofloxacin HCl 500 mg tablet 500 mg PO BID 3 Days Qty: 6 0RF Print Language: Bulgarian Instructions: Cyst (ED) Referrals: Physician,Non-Staff, MD [Primary Care Provider] - 1 week
== END 2024-12-08 17:57 | disposition home or self-care (01) ==
PROVIDERS: Emergency Provider Emergency Medicine
DX: L72.9 Follicular cyst of the skin and subcutaneous tissue, unspecified (principal); L08.9 Local infection of the skin and subcutaneous tissue, unspecified
CPT/HCPCS: 99283